=== PATIENT | female | born 1990 | race Caucasian/White ===

== ENCOUNTER 2020-04-15 07:11 | Day surgery (SDC) | payer MEDICAID, SELFPAY ==
[~2020-04-15] VITALS: Ht 160 cm; Wt 65.8 kg
[2020-04-15] MEDS ORDERED: DIPHENHYDRAMINE INJ 50 MG/ML VIAL IVP ONE (07:12)
[2020-04-15] MEDS ORDERED: SIMETHICONE 40 MG/0.6 ML ML PO ONE (07:12)
[2020-04-15] MEDS ORDERED: fentaNYL CITRATE/PF 100 MCG/2 ML AMP IVP ONE (07:12)
[2020-04-15] MEDS ORDERED: MIDAZOLAM HCL 2 MG/2 ML VIAL (VERSED) IVP ONE (07:12)
[2020-04-15 07:35] LABS: HCG,QUAL RESULT NEGATIVE (NEGATIVE)
[2020-04-15] MEDS ORDERED: SIMETHICONE 40 MG/0.6 ML ML ONE (07:43)
[2020-04-15] MEDS ORDERED: fentaNYL CITRATE/PF 100 MCG/2 ML AMP ONE ×2 (07:43→10:38)
[2020-04-15] MEDS ORDERED: MIDAZOLAM HCL 5 MG/5 ML VIAL ONE ×2 (07:44→10:38)
[2020-04-15] MEDS ORDERED: DIPHENHYDRAMINE INJ 50 MG/ML VIAL ONE (10:33)
[2020-04-15 14:30] VITALS: BP_SYST 125
== END 2020-04-15 11:45 | disposition home or self-care (01) ==
LOC: SDS 07:11 → SMU 07:12 → SDS 11:45
PROVIDERS: ATTEND Internal Medicine
DX: K52.9 Noninfective gastroenteritis and colitis, unspecified (principal); K64.8 Other hemorrhoids; K44.9 Diaphragmatic hernia without obstruction or gangrene; K29.70 Gastritis, unspecified, without bleeding; Z79.899 Other long term (current) drug therapy; Z20.828 Contact with and (suspected) exposure to other viral communicable diseases
CPT/HCPCS: 43239; 45380; 45381; 84703; 88305; 88312; 88313; 99152; 99153; G0378; J1200; J2250; J3010; J3465; U0003